=== PATIENT | female | born 1955 | race African-American/Black ===

== ENCOUNTER 2018-12-17 07:17 | Emergency (ER) | payer OTHER ==
[~2018-12-17] VITALS: Ht 157.5 cm; Wt 82.1 kg
[2018-12-17 07:22] VITALS: Ht 157.5 cm; Wt 82.1 kg
[2018-12-17 09:07] VITALS: BP 148/81
== END 2018-12-17 09:07 | disposition home or self-care (01) ==
LOC: ED 07:17
DX: S80.11XA Contusion of right lower leg, initial encounter (principal); M25.561 Pain in right knee; V48.5XXA Car driver injured in noncollision transport accident in traffic accident, initial encounter; Y93.I9 Activity, other involving external motion; Y92.411 Interstate highway as the place of occurrence of the external cause; Y99.8 Other external cause status